=== PATIENT | female | born 1980 ===

== ENCOUNTER 2018-01-02 16:53 | Emergency (ER) | payer MEDICAID ==
[2018-01-02 17:44] VITALS: RESP 18; TEMP 98.2; BMI 38.0
[2018-01-02] MEDS ORDERED: TDAP Vaccine 0.5 mL Syr IM ONE (18:21)
--- NOTE | 2018-01-02 18:29 | ED PDOC ---
Arrival/HPI - General Chief Complaint: Finger,Hand,&Wrist Time Seen by Provider: 01/02/18 18:19 Historian: Patient - History of Present Illness Narrative History of Present Illness (Text): 01/02/18 18:23 Pt is a 37 yr old female with no PMH who presents to the ED for a needle stick injury earlier today while piercing a client at work. Pt states that she works in a [employer] and while piercing an ear, the client moved and the her finger was penetrated by the needle. She reports squeezing her finger to make it bleed and then left work to get it checked. States the client indicated that they were negative for HIV and HepC, she felt it imperative to get checked and treated. Denies numbness, sob, chest pain, other hand trauma or any other complaint. Last tetanus vaccine unknown Time/Duration: Prior to Arrival Symptom Onset: Sudden Symptom Course: Unchanged Quality: Unable to Describe Severity Level: 2 Context: Work Past Medical History - Provider Review Nursing Documentation Reviewed: Yes - Travel History Have you recently traveled outside [place] w/in the past 3 mons?: No - Infectious Disease Hx of Infectious Diseases: None - Neurological Hx Migraine: Yes - Gastrointestinal Other/Comment: Gastric sleeve - Psychiatric Hx Substance Use: No - Surgical History Hx Gastric Bypass Surgery: Yes Hx Orthopedic Surgery: Yes (feet) Hx Tonsillectomy: Yes - Anesthesia Hx Anesthesia: Yes Hx Anesthesia Reactions: No Hx Malignant Hyperthermia: No Family/Social History - Physician Review Nursing Documentation Reviewed: Yes Family/Social History: Unknown Family HX Smoking Status: Heavy Smoker > 10 Cigarettes Daily Hx Alcohol Use: No Hx Substance Use: No Allergies/Home Meds Allergies/Adverse Reactions: Allergies No Known Allergies Allergy (Verified 01/02/18 17:49) Review of Systems - Review of Systems Systems not reviewed;Unavailable: Acuity of Condition Constitutional: Normal Eyes: Normal ENT: Normal Respiratory: Normal Cardiovascular: Normal Gastrointestinal: Normal Genitourinary Female: Normal Musculoskeletal: Normal Skin: Normal, Other (needlestick to the left 2nd digit at the tip) Neurological: Normal Endocrine: Normal Hemo/Lymphatic: Normal Psychiatric: Normal Physical Exam Vital Signs Reviewed: Yes Vital Signs Temp Pulse Resp BP Pulse Ox 01/02/18 23:05 98.2 F 70 18 120/69 99 01/02/18 17:43 98.2 F 69 18 113/78 100 Temperature: Afebrile Blood Pressure: Normal Pulse: Regular Respiratory Rate: Normal Appearance: Positive for: Well-Appearing, Non-Toxic, Comfortable Pain Distress: None Mental Status: Positive for: Alert and Oriented X 3 - Systems Exam Head: Present: Atraumatic, Normocephalic Pupils: Present: PERRL Extroacular Muscles: Present: EOMI Conjunctiva: Present: Normal Mouth: Present: Moist Mucous Membranes Neck: Present: Normal Range of Motion Respiratory/Chest: Present: Clear to Auscultation, Good Air Exchange. No: Respiratory Distress, Accessory Muscle Use Cardiovascular: Present: Regular Rate and Rhythm, Normal S1, S2. No: Murmurs Abdomen: No: Tenderness, Distention, Peritoneal Signs Back: Present: Normal Inspection Upper Extremity: Present: Normal Inspection. No: Cyanosis, Edema Lower Extremity: Present: Normal Inspection. No: Edema Neurological: Present: GCS=15, CN II-XII Intact, Speech Normal Skin: Present: Warm, Dry, Normal Color, Other (Puncture of left 2nd digit distal end, no active bleed or foreign body appreciated). No: Rashes Psychiatric: Present: Alert, Oriented x 3, Normal Insight, Normal Concentration Medical Decision Making ED Course and Treatment: 01/02/18 18:29 Impression Pt is a 37 yr old female with no PMH who presents to the ED for a needle stick injury earlier today while piercing a client at work. Plan Complete w/u for needlestick assess and dispo Progress Note 01/02/18 21:00 UA positive for Leuk esterase and wbc Macrobid 100mg PO STAT Labs WNL Pt refused to take macrobid capsule due to having a gastric sleeve; was told not to take capsules Bactrim DS PO given instead 01/02/18 21:16 Informed of side effects of medications for Ppx; pt gave consent to take medications Ppx treatment for HIV STAT; Pt stated that she is current with HepB vaccine and declined booster Advised to f/u with PMD for ongoing care, monitor liver and renal function Bactrim DS BID x 5 days for UTI VSS on d/c - Lab Interpretations Lab Results: 01/02/18 19:38 01/02/18 19:38 Lab Results 01/02/18 20:10: Urine Color Yellow, Urine Appearance Sl cloudy, Urine pH 7.0, Ur Specific [place] 1.025, Urine Protein Trace H, Urine Glucose (UA) Negative, Urine Ketones 15 H, Urine Blood Trace-intact H, Urine Nitrate Negative, Urine Bilirubin Small H, Urine Urobilinogen 2.0 H, Ur Leukocyte Esterase Moderate H, Urine RBC 2 - 5, Urine WBC 10 - 15, Ur Epithelial Cells Many, Urine Bacteria Mod , Urine HCG, Qual Negative 01/02/18 19:38: Sodium 143, Potassium 4.0, Chloride 103, Carbon Dioxide 27, Anion Gap 17, BUN 17, Creatinine 0.6 L, Est GFR ( Amer) > 60, Est GFR ( Non-Af Amer) > 60, Random Glucose 89, Calcium 9.0, Total Bilirubin 0.7, AST 25, ALT 29, Alkaline Phosphatase 78, Total Protein 7.4, Albumin 4.1, Globulin 3.3, Albumin/Globulin Ratio 1.2, Amylase 55 01/02/18 19:38: WBC 11.5 H, RBC 3.83, Hgb 10.9 L, Hct 33.5 L, MCV 87.5, MCH 28.5 , MCHC 32.5, RDW 14.1, Plt Count 277, MPV 12.0 H, Gran % 63.1, Lymph % (Auto) 29.1, [place] % (Auto) 6.5 H, Eos % (Auto) 1.0 L, Baso % (Auto) 0.3, Gran # 7.22 H , Lymph # (Auto) 3.3, [place] # (Auto) 0.8 H, Eos # (Auto) 0.1, Baso # (Auto) 0.04 - Medication Orders Current Medication Orders: Discontinued Medications Emtricitabine/Tenofovir (Truvada 200 Mg-300 Mg) 1 tab PO STAT STA PRN Reason: Protocol Stop: 01/02/18 22:42 Last Admin: 01/02/18 23:06 Dose: 1 tab Raltegravir (Isentress) 400 mg PO STAT STA PRN Reason: Protocol Stop: 01/02/18 22:42 Last Admin: 01/02/18 23:06 Dose: 400 mg Tetanus/Reduced Diphtheria/Acell Pertussis (Boostrix Vaccine Inj) 0.5 ml IM .ONCE ONE Stop: 01/02/18 18:22 Last Admin: 01/02/18 19:57 Dose: 0.5 ml Immunization Registry Document 01/02/18 19:57 AD (Rec: 01/02/18 19:57 AD [email or web address] Immunization Registry Consent Date 01/02/18 Trimethoprim/Sulfamethoxazole (Bactrim Ds Tab) 1 tab PO STAT STA PRN Reason: Protocol Stop: 01/02/18 21:12 Last Admin: 01/02/18 21:37 Dose: 1 tab Disposition/Present on Arrival - Present on Arrival Any Indicators Present on Arrival: Yes History of DVT/PE: No History of Uncontrolled Diabetes: No Urinary Catheter: No History of Decub. Ulcer: No History Surgical Site Infection Following: None - Disposition Have Diagnosis and Disposition been Completed?: Yes Diagnosis: Needlestick injury accident with exposure to body fluid Disposition: HOME/ ROUTINE Disposition Time: 22:55 Patient Plan: Discharge Condition: GOOD Discharge Instructions (ExitCare): Blood or Body Fluid Exposure Additional Instructions: MARIE NINO, thank you for letting us take care of you today. Your provider was Jorge A Merritt MD and you were treated for STUCK WITH NEEDLE. The emergency medical care you received today was directed at your acute symptoms. If you were prescribed any medication, please fill it and take as directed. It may take several days for your symptoms to resolve. Return to the Emergency Department if your symptoms worsen, do not improve, or if you have any other problems. Please follow up with your Primary Doctor in 2 weeks for on-going care Remember that the prophylactic medication that your are taking may cause intestinal upset and it will be important to have your liver and kidney function monitored Please contact your doctor or call one of the physicians/clinics you have been referred to that are listed on the Patient Visit Information form that is included in your discharge packet. Bring any paperwork you were given at discharge with you along with any medications you are taking to your follow up visit. Our treatment cannot replace ongoing medical care by a primary care provider outside of the emergency department. Thank you for allowing the [email or web address] team to be part of your care today. If you had an X-Ray or CT scan: A Radiologist will review the ED reading if any change in treatment is needed we will contact you. If you had a blood, urine, or wound culture: It will take several days for the results, if any change in treatment is needed we will contact you. If you had an STI test: It will take 48 hours for the results. Please call after 1 week if you have not heard back. Prescriptions: Emtricitabine/Tenofovir (Tdf) [Truvada 200 mg-300 mg Tablet] 1 each PO DAILY 14 Days #14 tablet Raltegravir Potassium [Isentress] 400 mg PO BID 14 Days #28 tab Sulfamethoxazole/Trimethoprim [Bactrim DS 800 mg-160 mg] 1 tab PO BID 5 Days # 10 tab Referrals: Torin Liu MD [Primary Care Provider] - Follow up with primary Forms: [facility] (Bulgarian), WORK NOTE
[2018-01-02 19:46] LABS: BASO # 0.04 K/mm3 (0.0-2.0); BASO % 0.3 % (0.0-3.0); EOS # 0.1 (0.0-0.7); GRAN # 7.22 (1.4-6.5); GRAN % 63.1 % (50.0-68.0); HEMOGLOBIN 10.9 g/dL (12.0-16.0); LYMPH # 3.3 (1.2-3.4); LYMPH % 29.1 % (22.0-35.0); MEAN CELL VOLUME 87.5 fl (80.0-105.0); MEAN CORPUSCULAR HEMOGLOBIN 28.5 pg (25.0-35.0); MEAN CORPUSCULAR HGB CONC 32.5 g/dl (31.0-37.0); MONO # 0.8 (0.1-0.6); MONO % 6.5 % (1.0-6.0); RBC 3.83 10^6/uL (3.5-6.1); RED CELL DISTRIBUTION WIDTH 14.1 % (11.5-14.5); WHITE BLOOD COUNT 11.5 10^3/ul (4.5-11.0)
[2018-01-02 19:54] LABS: ALB/GLOB RATIO 1.2 (1.1-1.8); ALBUMIN 4.1 g/dL (3.0-4.8); ALT/SGPT 29 U/L (7-56); AMYLASE 55 U/L (35-125); AST/SGOT 25 U/L (14-36); BLOOD UREA NITROGEN 17 mg/dL (7-21); GFR AFRICAN-AMERICAN > 60; GFR NON-AFRICAN AMERICAN > 60
[2018-01-02 20:26] LABS: URINE BILIRUBIN SMALL (NEGATIVE); URINE BLOOD TRACE-INTACT (NEGATIVE); URINE GLUCOSE (UA) NEGATIVE (NEGATIVE); URINE LEUKOCYTE ESTERASE MODERATE Leu/uL (NEGATIVE); URINE PROTEIN TRACE mg/dL (<30 mg/dL)
[2018-01-02 20:28] LABS: URINE APPEARANCE SL CLOUDY (CLEAR); URINE COLOR YELLOW (YELLOW)
[2018-01-02 20:37] LABS: HCG,QUALITATIVE URINE NEGATIVE (NEGATIVE); URINE BACTERIA MOD (NEG); URINE EPITHELIAL CELLS MANY /hpf (0-5)
[2018-01-02] MEDS: Tmp-Smz 800 mg-160 mg DS Tab PO STA ×2 (21:20→21:37)
[2018-01-02] MEDS ORDERED: Emtricitabine-Tenofovir 200 mg-300 mg Tab PO STA (22:41)
[2018-01-02 23:11] VITALS: BP 120/69; PULSE 70; O2SAT 99
[2018-01-03 12:23] LABS: HEPATITIS B SURFACE AG Negative (NEGATIVE)
[2018-01-03 12:30] LABS: HEPATITIS A IGM NEGATIVE (NEGATIVE); HEPATITIS B CORE AB NEGATIVE (NEGATIVE)
[2018-01-03 12:41] LABS: HEPATITIS C ANTIBODY NEGATIVE (NEGATIVE)
== END 2018-01-02 23:05 | disposition home or self-care (01) ==
LOC: ED 16:53 → MERGE 16:53 → ED 23:05
DX: S61.231A Puncture wound without foreign body of left index finger without damage to nail, initial encounter (principal); W46.0XXA Contact with hypodermic needle, initial encounter; Y92.89 Other specified places as the place of occurrence of the external cause; Y99.0 Civilian activity done for income or pay; Z77.21 Contact with and (suspected) exposure to potentially hazardous body fluids; Z23 Encounter for immunization